=== PATIENT | male | born 1935 | race Caucasian/White ===

== ENCOUNTER 2022-03-17 20:34 | Emergency (ER) | payer MEDICARE ==
[~2022-03-17] VITALS: Ht 165.1 cm; Wt 92.1 kg
[2022-03-17] MEDS ORDERED: FLOMAX0.4 MG PO (21:03)
[2022-03-17] MEDS ORDERED: PROBIOTIC 2 BI1 EACH PO (21:03)
[2022-03-17] MEDS ORDERED: CEFDINIR300 MG PO (21:03)
[2022-03-17] MEDS ORDERED: ACETAMINOPHEN500 MG PO (21:03)
[2022-03-17 21:28] VITALS: BP 203/98
== END 2022-03-17 21:28 | disposition home or self-care (01) ==
LOC: FSED 20:40
DX: R33.9 Retention of urine, unspecified (principal); N41.0 Acute prostatitis; F03.90 Unspecified dementia, unspecified severity, without behavioral disturbance, psychotic disturbance, mood disturbance, and anxiety
CPT/HCPCS: 51700; 81003; 99282

== ENCOUNTER 2022-05-04 14:19 | Emergency (ER) | payer MEDICARE ==
[~2022-05-04] VITALS: Ht 162.6 cm; Wt 87.2 kg
[~2022-05-04 14:19] MED LIST: ACETAMINOPHEN500 MG PO; CEFDINIR300 MG PO; FLOMAX0.4 MG PO; PROBIOTIC 2 BI1 EACH PO
[2022-05-04] MEDS ORDERED: GLUCOSAMINE1000 MG (14:52)
[2022-05-04] MEDS ORDERED: LOVASTATIN20 MG (14:52)
[2022-05-04] MEDS ORDERED: VITAMIN B-122000 MC1 (14:52)
[2022-05-04] MEDS ORDERED: AMLODIPINE BESY10 MG PO (14:52)
[2022-05-04] MEDS ORDERED: FISH OIL 1,0001 EAC2 (14:52)
[2022-05-04] MEDS ORDERED: ASPIRIN EC81 MG PO (14:52)
[2022-05-04] MEDS ORDERED: DYRENIUM50 MG PO (14:52)
[2022-05-04] MEDS ORDERED: CARVEDILOL12.5 MG PO (14:52)
[2022-05-04] MEDS ORDERED: ACETAMINOPHEN 325 MG TAB ONE (15:18)
[2022-05-04] MEDS ORDERED: ACETAMINOPHEN 325 MG TAB PO ONE (16:00)
== END 2022-05-04 17:15 | disposition other institution (70) ==
LOC: FSED 14:47
DX: Z46.6 Encounter for fitting and adjustment of urinary device (principal); R31.9 Hematuria, unspecified; F03.90 Unspecified dementia, unspecified severity, without behavioral disturbance, psychotic disturbance, mood disturbance, and anxiety; I10 Essential (primary) hypertension; E78.5 Hyperlipidemia, unspecified; I25.10 Atherosclerotic heart disease of native coronary artery without angina pectoris; Z20.822 Contact with and (suspected) exposure to COVID-19
CPT/HCPCS: 51702; 80053; 85025; 99284; U0002; 51700

== ENCOUNTER 2024-07-26 14:24 | Emergency (ER) | payer MEDICARE ==
[~2024-07-26] VITALS: Ht 162.6 cm; Wt 87.1 kg
[~2024-07-26 14:24] MED LIST changes: +AMLODIPINE BESY10 MG PO; +ASPIRIN EC81 MG PO; +CARVEDILOL12.5 MG PO; +DYRENIUM50 MG PO; +FISH OIL 1,0001 EAC2; +GLUCOSAMINE1000 MG; +LOVASTATIN20 MG; +VITAMIN B-122000 MC1
[2024-07-26 14:38] VITALS: PULSE 79; RESP 18; TEMP 97.9; O2SAT 100
== END 2024-07-26 15:44 | disposition home or self-care (01) ==
LOC: ER 15:05
DX: Z46.6 Encounter for fitting and adjustment of urinary device (principal); I10 Essential (primary) hypertension; E78.5 Hyperlipidemia, unspecified; I25.10 Atherosclerotic heart disease of native coronary artery without angina pectoris; F03.90 Unspecified dementia, unspecified severity, without behavioral disturbance, psychotic disturbance, mood disturbance, and anxiety
CPT/HCPCS: 99282